=== PATIENT | male | born 1965 | race Caucasian/White ===

== ENCOUNTER 2020-12-13 13:11 | Observation (INO) ==
[2020-12-13] MEDS ORDERED: Ondansetron 4 MG/2 ML VIAL IVP PRN (16:00)
[2020-12-13] MEDS ORDERED: Naloxone 0.4 MG/ML INJ IVP PRN (16:00)
[2020-12-13] MEDS ORDERED: Furosemide 20 MG/2 ML VIAL IVP ONE (17:33)
[2020-12-13] MEDS ORDERED: *HR* Dextrose 50 % in Water (Vial) 50 ML VIAL IVP PRN (17:48)
[2020-12-13] MEDS ORDERED: Dextrose Gel 15 GM/37.5 ML TUBE PO PRN ×2 (17:48)
[2020-12-13] MEDS ORDERED: D5% in Water 1,000 ML IVC PRN (17:48)
[2020-12-13] MEDS: carvediloL 6.25 MG TABLET PO SCH (17:59)
[2020-12-13] MEDS: *HR* Heparin 5,000 UNIT/ML VIAL SQ SCH ×2 (17:59→21:16)
[2020-12-13] MEDS: Aspirin Enteric Coated 81 MG Tablet PO SCH (18:42)
[2020-12-13 18:48] LABS: Bilirubin,Urine Negative (Negative); Blood,Urine Trace (Negative); Clarity,Urine Clear (Clear); Color,Urine Colorless (Yellow); Glucose,Urine (UA) 500 mg/dL (Normal); Ketones,Urine Negative (Negative); Leukocyte Esterase,Urine Negative (Negative); Mucus,Urine Few per lpf (None-Few); Nitrite,Urine Negative (Negative); PH,Urine 6.5 pH Units (5.0-8.0); Protein,Urine >=300 mg/dL (Neg-Trace); RBC,Urine 0-3 per hpf (0-3); Specific Gravity,Urine 1.011 (1.010-1.025); Urobilinogen,Urine Normal (Normal); WBC,Urine 0-3 per hpf (0-3)
[2020-12-13] MEDS: Insulin DETEMIR 100 UNIT/ML X5UNITS SUBQ SCH (21:16)
[2020-12-14 00:49] LABS: Basophils % 0.5 %; Hematocrit 39.7 % (37.5-50.1); Hemoglobin 12.8 g/dL (12.9-16.9); Immature Granulocytes % 0.3 % (0-4); Lymphocytes # 1.2 K/mcL (0.6-4.6); Lymphocytes % 19.6 %; Mean Corpuscular HGB Conc 32.2 g/dL (31.6-35.5); Mean Corpuscular Volume 89.8 fL (83.0-100.0); Mean Platelet Volume 10.2 fL (9.4-12.4); Monocytes # 0.4 K/mcL (0.0-1.3); Monocytes % 6.5 %; Neutrophils # 4.6 K/mcL (1.6-8.9); Platelet Count 226 K/mcL (140-400); Red Blood Count 4.42 M/mcL (4.19-5.50); Red Cell Distribution Width 13.4 % (11.5-14.5); Segmented Neutrophils % 73.1 %; White Blood Count 6.3 K/mcL (4.3-11.1)
[2020-12-14 01:05] LABS: % Iron Saturation 16 % (20-55); Iron 43 mcg/dL (65-175); Transferrin 188 mg/dL (203-362)
[2020-12-14 01:08] LABS: BUN/Creatinine Ratio 11 (6-26); Blood Urea Nitrogen 36 mg/dL (6-20); Calcium 7.7 mg/dL (8.6-10.3); Carbon Dioxide 21 mEq/L (23-29); Chloride 109 mEq/L (98-107); Chol/HDL Ratio 7.7 (0-4.9); Cholesterol 200 mg/dL (< 200); Glucose 427 mg/dL (70-105); HDL Cholesterol 26 mg/dL (40-59); Magnesium 1.9 mg/dL (1.6-2.6); Osmolality,Calculated 311 (280-300); Phosphorous 3.9 mg/dL (2.7-4.5); Potassium 4.5 mEq/L (3.5-5.1); Sodium 137 mEq/L (136-145); Triglycerides 479 mg/dL (< 150); Troponin I 0.03 ng/mL (< 0.04); eGFR For African Americans 23 (> 60); eGFR For Non-African Americans 19 (> 60)
[2020-12-14 01:24] LABS: Ferritin 81 ng/mL (20-250)
[2020-12-14] MEDS: *HR* Heparin 5,000 UNIT/ML VIAL SQ SCH ×3 (04:55→20:37)
[2020-12-14] MEDS: Aspirin Enteric Coated 81 MG Tablet PO SCH (08:23)
[2020-12-14] MEDS: carvediloL 6.25 MG TABLET PO SCH ×2 (08:23→17:15)
[2020-12-14] MEDS: Furosemide 20 MG/2 ML VIAL IVP SCH (08:24)
[2020-12-14] MEDS: Insulin LISPRO 300 UNITS/3 ML VIAL SUBQ SCH ×3 (08:25→16:54)
[2020-12-14] MEDS: Insulin DETEMIR 100 UNIT/ML X5UNITS SUBQ SCH ×2 (08:56→21:54)
[2020-12-14 11:00] LABS: Uric Acid 7.9 mg/dL (2.3-7.6)
[2020-12-14 11:28] LABS: Hepatitis B Surface Antigen Nonreactive (Nonreactive)
[2020-12-14 11:57] LABS: Hepatitis B Core IgM Nonreactive (Nonreactive); Hepatitis C Virus Antibody Nonreactive (Nonreactive)
[2020-12-14 11:59] LABS: Hepatitis A Antibody IgM Nonreactive (Nonreactive)
[2020-12-14] MEDS ORDERED: carvediloL 6.25 MG TABLET PO ONE (12:03)
[2020-12-14] MEDS ORDERED: Iron Sucrose Complex 400 MG in 0.9 % Sodium Chloride 250 ML IVPB ONE (12:31)
[2020-12-14] MEDS ORDERED: Insulin LISPRO 300 UNITS/3 ML VIAL SUBQ SCH (16:30)
[2020-12-15 02:34] LABS: Calcium 8.1 mg/dL (8.6-10.3); Potassium 3.8 mEq/L (3.5-5.1)
[2020-12-15] MEDS: *HR* Heparin 5,000 UNIT/ML VIAL SQ SCH ×2 (04:52→13:45)
[2020-12-15] MEDS ORDERED: Iron Sucrose Complex 400 MG in 0.9 % Sodium Chloride 250 ML IVPB ONE (07:00)
[2020-12-15] MEDS: Insulin LISPRO 300 UNITS/3 ML VIAL SUBQ SCH ×3 (07:57→17:18)
[2020-12-15] MEDS: Aspirin Enteric Coated 81 MG Tablet PO SCH (08:02)
[2020-12-15] MEDS: Furosemide 20 MG/2 ML VIAL IVP SCH (08:02)
[2020-12-15] MEDS: Insulin DETEMIR 100 UNIT/ML X5UNITS SUBQ SCH (08:03)
[2020-12-15] MEDS: carvediloL 6.25 MG TABLET PO SCH (08:03)
[2020-12-15] MEDS ORDERED: carvediloL 6.25 MG TABLET PO ONE (09:45)
[2020-12-15] MEDS ORDERED: carvediloL 25 MG TABLET PO SCH (17:00)
[2020-12-15 18:39] VITALS: BP 151/91
[2020-12-16 15:54] LABS: Total Volume 24 Hour,Urine 3.97 Liters (0.80-1.80)
[2020-12-16 16:15] LABS: Creatinine 24 Hour,Urine 2342 mg/day (800-2000); Creatinine,Urine 59 mg/dL; Microalbumin,Urine > 1350 mg/L; Total Protein 24 Hour,Urine 15920 mg/day (50-80)
== END 2020-12-15 19:25 | disposition home or self-care (01) ==
LOC: 2ANU → SUATTDRO 15:06
PROVIDERS: ADMIT Internal Medicine; ATTEND Internal Medicine

== ENCOUNTER 2021-03-06 03:52 | Inpatient (IN) ==
[2021-03-06] MEDS ORDERED: 0.9 % Sodium Chloride 1,000 ML ONE (06:44)
[2021-03-06] MEDS ORDERED: Ringers Solution, Lactated 1,000 ML ONE (07:20)
[2021-03-06] MEDS ORDERED: D5% in 0.45% NACL w KCl 20 MEQ/1,000 ML MLS IVC PRN (07:23)
[2021-03-06] MEDS ORDERED: D5% in 0.45% NACL 1,000 ML IVC PRN (07:23)
[2021-03-06] MEDS ORDERED: *HR* Dextrose 50 % in Water (Vial) 50 ML VIAL IVP PRN (07:23)
[2021-03-06] MEDS ORDERED: Ringers Solution, Lactated 1,000 ML IVC SCH (07:30)
[2021-03-06 07:50] LABS: Basophils % 0.2 %; Hematocrit 32.8 % (37.5-50.1); Hemoglobin 10.7 g/dL (12.9-16.9); Immature Granulocytes % 4.4 % (0-4); Lymphocytes % 12.2 %; Mean Corpuscular HGB Conc 32.6 g/dL (31.6-35.5); Mean Corpuscular Hemoglobin 28.5 pg (28.0-33.3); Mean Corpuscular Volume 87.2 fL (83.0-100.0); Mean Platelet Volume 10.3 fL (9.4-12.4); Monocytes # 0.5 K/mcL (0.0-1.3); Monocytes % 6.3 %; Neutrophils # 6.3 K/mcL (1.6-8.9); Platelet Count 136 K/mcL (140-400); Red Blood Count 3.76 M/mcL (4.19-5.50); Red Cell Distribution Width 14.1 % (11.5-14.5); Segmented Neutrophils % 76.9 %; White Blood Count 8.3 K/mcL (4.3-11.1)
[2021-03-06 08:18] LABS: VBG HCO3 6 mEq/L (21-27); VBG Ionized Calcium 0.93 mmol/L (1.15-1.35); VBG PCO2 20 mmHg (41-51); VBG PH 7.08 pH Units (7.32-7.42); VBG PO2 213 mmHg (25-50)
[2021-03-06 08:27] LABS: Albumin 2.6 g/dL (3.5-5.7); Albumin/Globulin Ratio 1.2 (1.1-2.2); Bilirubin,Total 0.3 mg/dL (0.3-1.0); Globulin 2.2 g/dL (2.4-3.5); Magnesium 2.4 mg/dL (1.6-2.6); Potassium 4.6 mEq/L (3.5-5.1); Total Protein 4.8 g/dL (6.4-8.9)
[2021-03-06 10:24] LABS: Calcium 6.8 mg/dL (8.6-10.3)
[2021-03-06] MEDS: 0.9 % Sodium Chloride 1,000 ML IVC SCH ×4 (10:51→23:44)
[2021-03-06 12:12] LABS: Sodium, Urine 15.9 mEq/L
[2021-03-06] MEDS: 0.45 % Sodium Chloride w/KCl 20 MEQ/1,000 ML MLS IVC SCH ×6 (12:36→23:43)
[2021-03-06 13:14] LABS: VBG HCO3 9 mEq/L (21-27); VBG PCO2 23 mmHg (41-51); VBG PH 7.19 pH Units (7.32-7.42); VBG PO2 105 mmHg (25-50)
[2021-03-06 13:38] LABS: Magnesium 2.5 mg/dL (1.6-2.6); Potassium 4.8 mEq/L (3.5-5.1)
[2021-03-06] MEDS: *HR* Heparin 5,000 UNIT/ML VIAL SQ SCH ×2 (13:52→23:05)
[2021-03-06 16:35] LABS: VBG HCO3 10 mEq/L (21-27); VBG PCO2 22 mmHg (41-51); VBG PH 7.27 pH Units (7.32-7.42); VBG PO2 213 mmHg (25-50)
[2021-03-06 16:39] LABS: Calcium 7.1 mg/dL (8.6-10.3); Magnesium 2.4 mg/dL (1.6-2.6); Potassium 4.5 mEq/L (3.5-5.1)
[2021-03-06] MEDS: Pantoprazole 40 MG VIAL IVP SCH (16:57)
[2021-03-06 17:33] LABS: Amorphous Sediment,Urine Few per hpf (None-Few); Bacteria,Urine Few per hpf (None-Few); Bilirubin,Urine Negative (Negative); Blood,Urine Moderate (Negative); Budding Yeast,Urine Moderate per hpf (None Seen); Clarity,Urine Turbid (Clear); Color,Urine Light-Yellow (Yellow); Glucose,Urine (UA) >=1000 mg/dL (Normal); Granular Casts,Urine Few per lpf (None Seen); Ketones,Urine 20 mg/dL (Negative); Leukocyte Esterase,Urine Negative (Negative); Mucus,Urine Few per lpf (None-Few); Nitrite,Urine Negative (Negative); Protein,Urine 200 mg/dL (Neg-Trace); Specific Gravity,Urine 1.013 (1.010-1.025); Squamous Epithelial Cell,Urine Few per hpf (None-Few); Urobilinogen,Urine Normal (Normal); WBC,Urine 15-30 per hpf (0-3)
[2021-03-06 23:02] LABS: VBG HCO3 17 mEq/L (21-27); VBG PCO2 44 mmHg (41-51); VBG PH 7.18 pH Units (7.32-7.42); VBG PO2 45 mmHg (25-50)
[2021-03-06 23:10] LABS: Magnesium 2.2 mg/dL (1.6-2.6); Potassium 3.4 mEq/L (3.5-5.1)
[2021-03-06] MEDS ORDERED: 0.45 % Sodium Chloride w/KCl 20 MEQ/1,000 ML MLS IVC PRN (23:46)
[2021-03-06] MEDS ORDERED: 0.9 % Sodium Chloride 1,000 ML IVC PRN (23:47)
[2021-03-07] MEDS: *HR* Heparin 5,000 UNIT/ML VIAL SQ SCH ×3 (05:12→19:57)
[2021-03-07 05:45] LABS: Calcium 7.3 mg/dL (8.6-10.3); Potassium 2.9 mEq/L (3.5-5.1)
[2021-03-07 05:46] LABS: Albumin 2.8 g/dL (3.5-5.7); Phosphorous 2.7 mg/dL (2.7-4.5)
[2021-03-07] MEDS ORDERED: Potassium Phosphate 44 MEQ in 0.9 % Sodium Chloride 250 ML IVPB ONE (06:23)
[2021-03-07] MEDS: Pantoprazole 40 MG VIAL IVP SCH (08:03)
[2021-03-07 11:20] LABS: Hematocrit 26.8 % (37.5-50.1); Hemoglobin 9.7 g/dL (12.9-16.9); Mean Corpuscular HGB Conc 36.2 g/dL (31.6-35.5); Mean Platelet Volume 9.4 fL (9.4-12.4); Platelet Count 105 K/mcL (140-400); Red Blood Count 3.35 M/mcL (4.19-5.50); Red Cell Distribution Width 14.3 % (11.5-14.5); White Blood Count 7.6 K/mcL (4.3-11.1)
[2021-03-07 11:21] LABS: Immature Granulocytes % 1.9 % (0-4); Lymphocytes # 0.3 K/mcL (0.6-4.6); Lymphocytes % 4.5 %; Monocytes # 0.3 K/mcL (0.0-1.3); Monocytes % 3.3 %; Neutrophils # 6.9 K/mcL (1.6-8.9); Segmented Neutrophils % 90.3 %
[2021-03-07 15:03] LABS: VBG Ionized Calcium 0.93 mmol/L (1.15-1.35)
[2021-03-07 15:41] LABS: Calcium 6.6 mg/dL (8.6-10.3); Potassium 3.7 mEq/L (3.5-5.1)
[2021-03-07] MEDS ORDERED: Dextrose Gel 15 GM/37.5 ML TUBE PO PRN ×2 (16:13)
[2021-03-07] MEDS ORDERED: D5% in Water 1,000 ML IVC PRN (16:13)
[2021-03-07] MEDS ORDERED: *HR* Dextrose 50 % in Water (Vial) 50 ML VIAL IVP PRN (16:13)
[2021-03-07] MEDS ORDERED: Insulin DETEMIR 100 UNIT/ML X5UNITS SUBQ SCH (17:00)
[2021-03-07] MEDS: Calcium Gluconate 1gm/50mL 1 GM/50 ML BAG IVPB SCH ×2 (17:03→18:05)
[2021-03-07] MEDS: Insulin LISPRO 300 UNITS/3 ML VIAL SUBQ SCH ×2 (17:04→19:59)
[2021-03-07] MEDS: carvediloL 25 MG TABLET PO SCH (17:05)
[2021-03-07] MEDS: Insulin DETEMIR 100 UNIT/ML X5UNITS SUBQ SCH (19:57)
[2021-03-07 23:31] LABS: Albumin 2.3 g/dL (3.5-5.7); Bilirubin,Total 0.4 mg/dL (0.3-1.0); Calcium 6.9 mg/dL (8.6-10.3); Globulin 2.3 g/dL (2.4-3.5); Magnesium 1.7 mg/dL (1.6-2.6); Phosphorous 5.5 mg/dL (2.7-4.5); Potassium 4.1 mEq/L (3.5-5.1); Total Protein 4.6 g/dL (6.4-8.9)
[2021-03-07 23:33] LABS: VBG Ionized Calcium 0.97 mmol/L (1.15-1.35)
[2021-03-08 04:56] LABS: VBG Ionized Calcium 1.02 mmol/L (1.15-1.35)
[2021-03-08 05:06] LABS: Hematocrit 27.8 % (37.5-50.1); Hemoglobin 9.7 g/dL (12.9-16.9); Immature Granulocytes % 1.9 % (0-4); Lymphocytes # 0.3 K/mcL (0.6-4.6); Lymphocytes % 4.2 %; Mean Corpuscular HGB Conc 34.9 g/dL (31.6-35.5); Mean Corpuscular Hemoglobin 28.6 pg (28.0-33.3); Mean Platelet Volume 9.3 fL (9.4-12.4); Monocytes # 0.1 K/mcL (0.0-1.3); Neutrophils # 5.9 K/mcL (1.6-8.9); Platelet Count 105 K/mcL (140-400); Red Blood Count 3.39 M/mcL (4.19-5.50); Red Cell Distribution Width 14.6 % (11.5-14.5); Segmented Neutrophils % 91.9 %; White Blood Count 6.4 K/mcL (4.3-11.1)
[2021-03-08 05:10] LABS: Albumin 2.6 g/dL (3.5-5.7); Albumin/Globulin Ratio 1.1 (1.1-2.2); Bilirubin,Total 0.6 mg/dL (0.3-1.0); Globulin 2.4 g/dL (2.4-3.5); Magnesium 1.7 mg/dL (1.6-2.6); Phosphorous 4.9 mg/dL (2.7-4.5); Potassium 4.4 mEq/L (3.5-5.1)
[2021-03-08] MEDS: *HR* Heparin 5,000 UNIT/ML VIAL SQ SCH ×3 (05:35→20:47)
[2021-03-08] MEDS ORDERED: Furosemide 40 MG/4 ML VIAL IVP ONE ×2 (05:47→18:00)
[2021-03-08] MEDS: Calcium Gluconate 1gm/50mL 1 GM/50 ML BAG IVPB SCH ×2 (06:46→08:46)
[2021-03-08] MEDS: Insulin DETEMIR 100 UNIT/ML X5UNITS SUBQ SCH ×2 (08:46→17:16)
[2021-03-08] MEDS: Cholecalciferol (D-3) 1,000 UNIT (25MCG) TABLET PO SCH (08:46)
[2021-03-08] MEDS: dexAMETHasone 4 MG TABLET PO SCH (08:47)
[2021-03-08] MEDS: Pantoprazole 40 MG VIAL IVP SCH (08:47)
[2021-03-08] MEDS: carvediloL 25 MG TABLET PO SCH ×2 (08:47→17:16)
[2021-03-08] MEDS: Insulin LISPRO 300 UNITS/3 ML VIAL SUBQ SCH ×4 (08:49→20:55)
[2021-03-08] MEDS ORDERED: *HR* Alteplase (Cathflo) 2 MG VIAL IVP ONE (09:30)
[2021-03-08] MEDS ORDERED: Insulin DETEMIR 100 UNIT/ML X5UNITS SUBQ ONE (12:00)
[2021-03-08] MEDS ORDERED: TOCILIZUMAB 810 MG in 0.9 % Sodium Chloride 95.5 ML IVPB ONE (20:00)
[2021-03-08] MEDS: PARoxetine 20 MG TABLET PO SCH (20:48)
[2021-03-09] MEDS: *HR* Heparin 5,000 UNIT/ML VIAL SQ SCH ×3 (04:59→20:59)
[2021-03-09 05:14] LABS: Hemoglobin 9.5 g/dL (12.9-16.9); Red Cell Distribution Width 14.4 % (11.5-14.5)
[2021-03-09 05:15] LABS: VBG HCO3 21 mEq/L (21-27); VBG Ionized Calcium 1.06 mmol/L (1.15-1.35); VBG PCO2 38 mmHg (41-51); VBG PH 7.35 pH Units (7.32-7.42); VBG PO2 63 mmHg (25-50)
[2021-03-09 05:16] LABS: Basophils % 0.2 %; Hematocrit 27.4 % (37.5-50.1); Immature Granulocytes % 1.4 % (0-4); Immature Platelets 1.9 % (1.1-6.1); Lymphocytes # 0.2 K/mcL (0.6-4.6); Lymphocytes % 4.8 %; Mean Corpuscular HGB Conc 34.7 g/dL (31.6-35.5); Mean Corpuscular Hemoglobin 28.2 pg (28.0-33.3); Mean Corpuscular Volume 81.3 fL (83.0-100.0); Mean Platelet Volume 9.9 fL (9.4-12.4); Monocytes # 0.1 K/mcL (0.0-1.3); Monocytes % 2.6 %; Neutrophils # 4.6 K/mcL (1.6-8.9); Red Blood Count 3.37 M/mcL (4.19-5.50)
[2021-03-09 05:17] LABS: Platelet Count 97 K/mcL (140-400)
[2021-03-09 05:36] LABS: Calcium 7.7 mg/dL (8.6-10.3); Potassium 3.6 mEq/L (3.5-5.1)
[2021-03-09 05:37] LABS: Albumin 2.4 g/dL (3.5-5.7); Albumin/Globulin Ratio 0.8 (1.1-2.2); Bilirubin,Indirect 0.6 mg/dL (0.0-1.0); Bilirubin,Total 0.6 mg/dL (0.3-1.0); Globulin 2.9 g/dL (2.4-3.5); Phosphorous 4.9 mg/dL (2.7-4.5); Total Protein 5.3 g/dL (6.4-8.9)
[2021-03-09] MEDS ORDERED: Furosemide 40 MG/4 ML VIAL IVP ONE (07:08)
[2021-03-09 07:18] LABS: Estimated Average Glucose 243 mg/dL; Hemoglobin A1C 10.1 % (<=5.6)
[2021-03-09] MEDS: Cholecalciferol (D-3) 1,000 UNIT (25MCG) TABLET PO SCH (07:46)
[2021-03-09] MEDS: PARoxetine 20 MG TABLET PO SCH (07:46)
[2021-03-09] MEDS: dexAMETHasone 4 MG TABLET PO SCH (07:46)
[2021-03-09] MEDS: carvediloL 25 MG TABLET PO SCH ×2 (07:46→16:40)
[2021-03-09] MEDS: Pantoprazole 40 MG VIAL IVP SCH (07:46)
[2021-03-09] MEDS: Insulin DETEMIR 100 UNIT/ML X5UNITS SUBQ SCH ×2 (07:47→21:04)
[2021-03-09] MEDS: Insulin LISPRO 300 UNITS/3 ML VIAL SUBQ SCH ×4 (08:29→20:41)
[2021-03-09 21:31] LABS: Magnesium 1.9 mg/dL (1.6-2.6); Potassium 3.8 mEq/L (3.5-5.1)
[2021-03-09 21:34] LABS: VBG Ionized Calcium 1.08 mmol/L (1.15-1.35)
[2021-03-10 04:19] LABS: Hematocrit 30.2 % (37.5-50.1); Hemoglobin 10.4 g/dL (12.9-16.9); Immature Granulocytes % 1.3 % (0-4); Lymphocytes # 0.3 K/mcL (0.6-4.6); Lymphocytes % 3.4 %; Mean Corpuscular HGB Conc 34.4 g/dL (31.6-35.5); Mean Corpuscular Hemoglobin 28.2 pg (28.0-33.3); Mean Corpuscular Volume 81.8 fL (83.0-100.0); Mean Platelet Volume 10.6 fL (9.4-12.4); Monocytes # 0.2 K/mcL (0.0-1.3); Monocytes % 2.6 %; Neutrophils # 7.1 K/mcL (1.6-8.9); Platelet Count 112 K/mcL (140-400); Red Blood Count 3.69 M/mcL (4.19-5.50); Segmented Neutrophils % 92.7 %
[2021-03-10 04:22] LABS: White Blood Count 7.6 K/mcL (4.3-11.1)
[2021-03-10 04:28] LABS: INR 1.1; Prothrombin Time 12.6 Seconds (9.4-12.1)
[2021-03-10 04:36] LABS: VBG HCO3 20 mEq/L (21-27); VBG Ionized Calcium 1.09 mmol/L (1.15-1.35); VBG PCO2 32 mmHg (41-51); VBG PO2 123 mmHg (25-50)
[2021-03-10 04:39] LABS: Magnesium 1.9 mg/dL (1.6-2.6); Phosphorous 4.1 mg/dL (2.7-4.5); Potassium 3.7 mEq/L (3.5-5.1)
[2021-03-10] MEDS: *HR* Heparin 5,000 UNIT/ML VIAL SQ SCH ×3 (05:43→20:50)
[2021-03-10] MEDS: Pantoprazole 40 MG VIAL IVP SCH (08:12)
[2021-03-10] MEDS: Cholecalciferol (D-3) 1,000 UNIT (25MCG) TABLET PO SCH (08:13)
[2021-03-10] MEDS: carvediloL 25 MG TABLET PO SCH ×2 (08:13→17:20)
[2021-03-10] MEDS: PARoxetine 20 MG TABLET PO SCH (08:13)
[2021-03-10] MEDS: Dexamethasone Sodium Phos/PF 10 MG/ML VIAL IVP SCH (08:13)
[2021-03-10] MEDS: Insulin DETEMIR 100 UNIT/ML X5UNITS SUBQ SCH ×2 (08:14→19:43)
[2021-03-10] MEDS: Insulin LISPRO 300 UNITS/3 ML VIAL SUBQ SCH ×4 (08:43→19:41)
[2021-03-11 04:51] LABS: VBG Ionized Calcium 1.09 mmol/L (1.15-1.35)
[2021-03-11 04:58] LABS: Basophils % 0.1 %; Hematocrit 29.3 % (37.5-50.1); Hemoglobin 10.2 g/dL (12.9-16.9); Immature Granulocytes % 1.4 % (0-4); Lymphocytes # 0.4 K/mcL (0.6-4.6); Lymphocytes % 4.2 %; Mean Corpuscular HGB Conc 34.8 g/dL (31.6-35.5); Mean Corpuscular Hemoglobin 28.5 pg (28.0-33.3); Mean Corpuscular Volume 81.8 fL (83.0-100.0); Mean Platelet Volume 10.6 fL (9.4-12.4); Monocytes # 0.4 K/mcL (0.0-1.3); Monocytes % 4.2 %; Neutrophils # 7.8 K/mcL (1.6-8.9); Platelet Count 142 K/mcL (140-400); Red Blood Count 3.58 M/mcL (4.19-5.50); Red Cell Distribution Width 13.4 % (11.5-14.5); Segmented Neutrophils % 90.1 %; White Blood Count 8.7 K/mcL (4.3-11.1)
[2021-03-11 04:58] LABS: VBG HCO3 21 mEq/L (21-27); VBG PCO2 32 mmHg (41-51); VBG PH 7.44 pH Units (7.32-7.42); VBG PO2 138 mmHg (25-50)
[2021-03-11] MEDS: *HR* Heparin 5,000 UNIT/ML VIAL SQ SCH ×3 (05:09→21:24)
[2021-03-11 05:14] LABS: Potassium 3.5 mEq/L (3.5-5.1)
[2021-03-11 05:15] LABS: Calcium 7.9 mg/dL (8.6-10.3); Phosphorous 3.8 mg/dL (2.7-4.5)
[2021-03-11] MEDS: Cholecalciferol (D-3) 1,000 UNIT (25MCG) TABLET PO SCH (07:35)
[2021-03-11] MEDS: Pantoprazole 40 MG VIAL IVP SCH (07:35)
[2021-03-11] MEDS: PARoxetine 20 MG TABLET PO SCH (07:35)
[2021-03-11] MEDS: carvediloL 25 MG TABLET PO SCH ×2 (07:36→16:17)
[2021-03-11] MEDS: Dexamethasone Sodium Phos/PF 10 MG/ML VIAL IVP SCH (07:36)
[2021-03-11] MEDS: Insulin DETEMIR 100 UNIT/ML X5UNITS SUBQ SCH ×2 (08:56→21:24)
[2021-03-11] MEDS: Insulin LISPRO 300 UNITS/3 ML VIAL SUBQ SCH ×4 (08:56→21:14)
[2021-03-11] MEDS ORDERED: Furosemide 40 MG/4 ML VIAL IVP ONE (10:47)
[2021-03-12 03:43] LABS: VBG HCO3 21 mEq/L (21-27); VBG Ionized Calcium 1.07 mmol/L (1.15-1.35); VBG PCO2 32 mmHg (41-51); VBG PH 7.42 pH Units (7.32-7.42); VBG PO2 64 mmHg (25-50)
[2021-03-12 03:44] LABS: Basophils % 0.2 %; Hematocrit 32.3 % (37.5-50.1); Hemoglobin 11.1 g/dL (12.9-16.9); Immature Granulocytes % 3.4 % (0-4); Lymphocytes # 0.6 K/mcL (0.6-4.6); Lymphocytes % 4.3 %; Mean Corpuscular HGB Conc 34.4 g/dL (31.6-35.5); Mean Corpuscular Hemoglobin 28.4 pg (28.0-33.3); Mean Corpuscular Volume 82.6 fL (83.0-100.0); Mean Platelet Volume 10.3 fL (9.4-12.4); Monocytes # 0.8 K/mcL (0.0-1.3); Monocytes % 5.3 %; Neutrophils # 12.3 K/mcL (1.6-8.9); Nucleated Red Blood Cells 0.1 /100 WBC (0); Platelet Count 196 K/mcL (140-400); Red Blood Count 3.91 M/mcL (4.19-5.50); Red Cell Distribution Width 13.3 % (11.5-14.5); Segmented Neutrophils % 86.8 %
[2021-03-12 03:46] LABS: White Blood Count 14.2 K/mcL (4.3-11.1)
[2021-03-12 04:04] LABS: Magnesium 2.1 mg/dL (1.6-2.6); Phosphorous 4.3 mg/dL (2.7-4.5); Potassium 3.6 mEq/L (3.5-5.1)
[2021-03-12] MEDS: *HR* Heparin 5,000 UNIT/ML VIAL SQ SCH ×3 (05:52→20:13)
[2021-03-12] MEDS: Insulin DETEMIR 100 UNIT/ML X5UNITS SUBQ SCH ×2 (09:00→20:13)
[2021-03-12] MEDS: Insulin LISPRO 300 UNITS/3 ML VIAL SUBQ SCH ×4 (09:00→20:14)
[2021-03-12] MEDS: Pantoprazole 40 MG VIAL IVP SCH (09:01)
[2021-03-12] MEDS: PARoxetine 20 MG TABLET PO SCH (09:01)
[2021-03-12] MEDS: Cholecalciferol (D-3) 1,000 UNIT (25MCG) TABLET PO SCH (09:01)
[2021-03-12] MEDS: Dexamethasone Sodium Phos/PF 10 MG/ML VIAL IVP SCH (09:01)
[2021-03-12] MEDS: carvediloL 25 MG TABLET PO SCH ×2 (09:01→15:50)
[2021-03-12] MEDS: amLODIPine 5 MG TABLET PO SCH (20:13)
[2021-03-13] MEDS: *HR* Heparin 5,000 UNIT/ML VIAL SQ SCH ×3 (05:32→21:32)
[2021-03-13] MEDS: Cholecalciferol (D-3) 1,000 UNIT (25MCG) TABLET PO SCH (07:54)
[2021-03-13] MEDS: PARoxetine 20 MG TABLET PO SCH (07:54)
[2021-03-13] MEDS: Dexamethasone Sodium Phos/PF 10 MG/ML VIAL IVP SCH (07:54)
[2021-03-13] MEDS: amLODIPine 5 MG TABLET PO SCH ×2 (07:54→20:12)
[2021-03-13] MEDS: Pantoprazole 40 MG VIAL IVP SCH (07:54)
[2021-03-13] MEDS: carvediloL 25 MG TABLET PO SCH ×2 (07:54→16:01)
[2021-03-13 08:24] LABS: VBG HCO3 22 mEq/L (21-27); VBG Ionized Calcium 1.07 mmol/L (1.15-1.35); VBG PCO2 34 mmHg (41-51); VBG PH 7.42 pH Units (7.32-7.42); VBG PO2 78 mmHg (25-50)
[2021-03-13] MEDS: Insulin LISPRO 300 UNITS/3 ML VIAL SUBQ SCH ×4 (08:26→16:01)
[2021-03-13] MEDS: Insulin DETEMIR 100 UNIT/ML X5UNITS SUBQ SCH ×2 (08:26→20:13)
[2021-03-13 08:27] LABS: Hematocrit 33.1 % (37.5-50.1); Hemoglobin 11.4 g/dL (12.9-16.9); Mean Corpuscular HGB Conc 34.4 g/dL (31.6-35.5); Mean Corpuscular Hemoglobin 28.3 pg (28.0-33.3); Mean Corpuscular Volume 82.1 fL (83.0-100.0); Mean Platelet Volume 10.5 fL (9.4-12.4); Monocytes # 0.7 K/mcL (0.0-1.3); Nucleated Red Blood Cells 0.2 /100 WBC (0); Platelet Count 259 K/mcL (140-400); Red Blood Count 4.03 M/mcL (4.19-5.50); Red Cell Distribution Width 13.3 % (11.5-14.5); White Blood Count 18.3 K/mcL (4.3-11.1)
[2021-03-13 08:52] LABS: Eosinophils # 0.4 K/mcL (0.0-0.6); Lymphocytes # 1.1 K/mcL (0.6-4.6); Neutrophils # 16.1 K/mcL (1.6-8.9); Platelet Estimate Normal (Normal)
[2021-03-13 10:18] LABS: Blood Urea Nitrogen > 130 mg/dL (6-20); C-Reactive Protein 15 mg/L (Less than 10); Carbon Dioxide 23 mEq/L (23-29); Chloride 109 mEq/L (98-107); Glucose 64 mg/dL (70-105); Magnesium 2.4 mg/dL (1.6-2.6); Phosphorous 5.2 mg/dL (2.7-4.5); Potassium 3.6 mEq/L (3.5-5.1); Sodium 144 mEq/L (136-145); eGFR For African Americans 14 (> 60); eGFR For Non-African Americans 12 (> 60)
[2021-03-13] MEDS ORDERED: D5% in Water 1,000 ML IVC PRN (11:10)
[2021-03-13] MEDS ORDERED: Dextrose Gel 15 GM/37.5 ML TUBE PO PRN ×2 (11:10)
[2021-03-13] MEDS ORDERED: *HR* Dextrose 50 % in Water (Vial) 50 ML VIAL IVP PRN (11:10)
[2021-03-13] MEDS ORDERED: Insulin LISPRO 300 UNITS/3 ML VIAL SUBQ SCH (21:00)
[2021-03-14] MEDS: *HR* Heparin 5,000 UNIT/ML VIAL SQ SCH ×3 (05:36→23:17)
[2021-03-14 07:52] LABS: Hematocrit 33.7 % (37.5-50.1); Hemoglobin 11.4 g/dL (12.9-16.9); Mean Corpuscular HGB Conc 33.8 g/dL (31.6-35.5); Mean Corpuscular Hemoglobin 28.1 pg (28.0-33.3); Mean Corpuscular Volume 83.2 fL (83.0-100.0); Mean Platelet Volume 10.3 fL (9.4-12.4); Nucleated Red Blood Cells 0.2 /100 WBC (0); Platelet Count 230 K/mcL (140-400); Red Blood Count 4.05 M/mcL (4.19-5.50); Red Cell Distribution Width 13.2 % (11.5-14.5); White Blood Count 13.3 K/mcL (4.3-11.1)
[2021-03-14 07:56] LABS: VBG Ionized Calcium 1.04 mmol/L (1.15-1.35)
[2021-03-14] MEDS: Cholecalciferol (D-3) 1,000 UNIT (25MCG) TABLET PO SCH (08:11)
[2021-03-14] MEDS: amLODIPine 5 MG TABLET PO SCH ×2 (08:11→20:26)
[2021-03-14] MEDS: carvediloL 25 MG TABLET PO SCH ×2 (08:11→15:31)
[2021-03-14 08:12] LABS: Lymphocytes # 0.3 K/mcL (0.6-4.6); Monocytes # 0.5 K/mcL (0.0-1.3); Neutrophils # 12.5 K/mcL (1.6-8.9)
[2021-03-14] MEDS: PARoxetine 20 MG TABLET PO SCH (08:12)
[2021-03-14 08:13] LABS: Platelet Estimate Normal (Normal)
[2021-03-14 08:15] LABS: Alanine Aminotransferase 25 Units/L (7-52); Albumin 2.8 g/dL (3.5-5.7); Albumin/Globulin Ratio 1.2 (1.1-2.2); Alkaline Phosphatase 74 Units/L (34-104); Aspartate Amino Transferase 26 Units/L (13-39); Bilirubin,Total 0.6 mg/dL (0.3-1.0); Blood Urea Nitrogen > 130 mg/dL (6-20); Calcium 7.9 mg/dL (8.6-10.3); Carbon Dioxide 20 mEq/L (23-29); Chloride 108 mEq/L (98-107); Globulin 2.4 g/dL (2.4-3.5); Glucose 193 mg/dL (70-105); Magnesium 2.4 mg/dL (1.6-2.6); Phosphorous 5.8 mg/dL (2.7-4.5); Sodium 141 mEq/L (136-145); Total Protein 5.2 g/dL (6.4-8.9); eGFR For African Americans 16 (> 60); eGFR For Non-African Americans 13 (> 60)
[2021-03-14] MEDS: Insulin DETEMIR 100 UNIT/ML X5UNITS SUBQ SCH ×2 (08:20→23:09)
[2021-03-14] MEDS: Insulin LISPRO 300 UNITS/3 ML VIAL SUBQ SCH ×4 (08:20→23:10)
[2021-03-14] MEDS ORDERED: Dexamethasone Sodium Phos/PF 10 MG/ML VIAL IVP SCH (09:00)
[2021-03-14] MEDS: Pantoprazole 40 MG VIAL IVP SCH (10:18)
[2021-03-15 05:12] LABS: Basophils % 0.1 %; Hematocrit 32.9 % (37.5-50.1); Hemoglobin 11.1 g/dL (12.9-16.9); Immature Granulocytes % 4.9 % (0-4); Lymphocytes # 0.3 K/mcL (0.6-4.6); Lymphocytes % 1.8 %; Mean Corpuscular HGB Conc 33.7 g/dL (31.6-35.5); Mean Corpuscular Hemoglobin 28.4 pg (28.0-33.3); Mean Corpuscular Volume 84.1 fL (83.0-100.0); Monocytes # 0.3 K/mcL (0.0-1.3); Monocytes % 2.2 %; Neutrophils # 13.4 K/mcL (1.6-8.9); Platelet Count 223 K/mcL (140-400); Red Blood Count 3.91 M/mcL (4.19-5.50); Red Cell Distribution Width 13.5 % (11.5-14.5); White Blood Count 14.8 K/mcL (4.3-11.1)
[2021-03-15 05:20] LABS: Fibrinogen 394 mg/dL (169-393)
[2021-03-15 05:24] LABS: D-Dimer 2227 ng/mLFEU (0-500)
[2021-03-15 05:48] LABS: Alanine Aminotransferase 24 Units/L (7-52); Albumin 2.6 g/dL (3.5-5.7); Alkaline Phosphatase 82 Units/L (34-104); Aspartate Amino Transferase 20 Units/L (13-39); Bilirubin,Total 0.5 mg/dL (0.3-1.0); Blood Urea Nitrogen > 130 mg/dL (6-20); C-Reactive Protein 36 mg/L (Less than 10); Carbon Dioxide 19 mEq/L (23-29); Chloride 108 mEq/L (98-107); Ferritin 1175 ng/mL (20-250); Globulin 2.7 g/dL (2.4-3.5); Glucose 334 mg/dL (70-105); Lactate Dehydrogenase 597 Units/L (140-271); Potassium 4.5 mEq/L (3.5-5.1); Sodium 141 mEq/L (136-145); Total Protein 5.3 g/dL (6.4-8.9); eGFR For African Americans 17 (> 60); eGFR For Non-African Americans 14 (> 60)
[2021-03-15] MEDS: Insulin LISPRO 300 UNITS/3 ML VIAL SUBQ SCH ×4 (05:59→20:03)
[2021-03-15] MEDS: *HR* Heparin 5,000 UNIT/ML VIAL SQ SCH ×3 (05:59→22:46)
[2021-03-15] MEDS: Insulin DETEMIR 100 UNIT/ML X5UNITS SUBQ SCH ×2 (05:59→18:28)
[2021-03-15] MEDS: Pantoprazole 40 MG VIAL IVP SCH (09:10)
[2021-03-15] MEDS: Cholecalciferol (D-3) 1,000 UNIT (25MCG) TABLET PO SCH (09:10)
[2021-03-15] MEDS: Aspirin Enteric Coated 81 MG Tablet PO SCH (09:10)
[2021-03-15] MEDS: amLODIPine 5 MG TABLET PO SCH ×2 (09:10→20:04)
[2021-03-15] MEDS: carvediloL 25 MG TABLET PO SCH ×2 (09:10→17:26)
[2021-03-15] MEDS: PARoxetine 20 MG TABLET PO SCH (09:11)
[2021-03-15] MEDS ORDERED: Sodium Bicarbonate 50 MEQ in 0.45 % Sodium Chloride 1,000 ML IVC SCH (11:45)
[2021-03-16 03:13] LABS: Basophils % 0.1 %; Hematocrit 33.5 % (37.5-50.1); Hemoglobin 11.4 g/dL (12.9-16.9); Immature Granulocytes % 2.5 % (0-4); Lymphocytes # 0.3 K/mcL (0.6-4.6); Lymphocytes % 1.7 %; Mean Corpuscular Hemoglobin 28.7 pg (28.0-33.3); Mean Corpuscular Volume 84.4 fL (83.0-100.0); Mean Platelet Volume 10.9 fL (9.4-12.4); Monocytes # 0.3 K/mcL (0.0-1.3); Monocytes % 1.9 %; Neutrophils # 15.9 K/mcL (1.6-8.9); Platelet Count 232 K/mcL (140-400); Red Blood Count 3.97 M/mcL (4.19-5.50); Red Cell Distribution Width 13.8 % (11.5-14.5); Segmented Neutrophils % 93.8 %
[2021-03-16 03:36] LABS: Alanine Aminotransferase 22 Units/L (7-52); Albumin 2.7 g/dL (3.5-5.7); Albumin/Globulin Ratio 1.1 (1.1-2.2); Alkaline Phosphatase 93 Units/L (34-104); Aspartate Amino Transferase 18 Units/L (13-39); Bilirubin,Total 0.5 mg/dL (0.3-1.0); Blood Urea Nitrogen > 130 mg/dL (6-20); Calcium 8.3 mg/dL (8.6-10.3); Carbon Dioxide 22 mEq/L (23-29); Chloride 111 mEq/L (98-107); Globulin 2.4 g/dL (2.4-3.5); Glucose 114 mg/dL (70-105); Sodium 146 mEq/L (136-145); Total Protein 5.1 g/dL (6.4-8.9); eGFR For African Americans 17 (> 60); eGFR For Non-African Americans 14 (> 60)
[2021-03-16] MEDS: *HR* Heparin 5,000 UNIT/ML VIAL SQ SCH ×2 (05:47→21:39)
[2021-03-16] MEDS: Insulin LISPRO 300 UNITS/3 ML VIAL SUBQ SCH ×4 (08:50→21:58)
[2021-03-16] MEDS: Pantoprazole 40 MG VIAL IVP SCH (08:53)
[2021-03-16] MEDS: carvediloL 25 MG TABLET PO SCH ×2 (08:54→17:47)
[2021-03-16] MEDS: Aspirin Enteric Coated 81 MG Tablet PO SCH (08:55)
[2021-03-16] MEDS: Cholecalciferol (D-3) 1,000 UNIT (25MCG) TABLET PO SCH (08:55)
[2021-03-16] MEDS: amLODIPine 5 MG TABLET PO SCH (08:55)
[2021-03-16] MEDS: PARoxetine 20 MG TABLET PO SCH (08:55)
[2021-03-16] MEDS: Insulin DETEMIR 100 UNIT/ML X5UNITS SUBQ SCH ×2 (08:56→20:50)
[2021-03-16] MEDS ORDERED: 0.9 % Sodium Chloride 250 ML IVC PRN (13:41)
[2021-03-16] MEDS ORDERED: 0.9 % Sodium Chloride 1,000 ML PRIME SCH (13:45)
[2021-03-16] MEDS ORDERED: Albumin 25% 25gram/100mL 25 GM/100 ML IV.SOLN IVC PRN (13:46)
[2021-03-16 14:29] LABS: INR 1.1; Prothrombin Time 12.9 Seconds (9.4-12.1)
[2021-03-16] MEDS ORDERED: amLODIPine 5 MG TABLET PO ONE (14:35)
[2021-03-16] MEDS ORDERED: Insulin DETEMIR 100 UNIT/ML X5UNITS SUBQ SCH (19:00)
[2021-03-17 03:02] LABS: Basophils % 0.1 %; Hematocrit 32.8 % (37.5-50.1); Hemoglobin 11.4 g/dL (12.9-16.9); Immature Granulocytes % 1.2 % (0-4); Lymphocytes # 0.2 K/mcL (0.6-4.6); Lymphocytes % 1.3 %; Mean Corpuscular HGB Conc 34.8 g/dL (31.6-35.5); Mean Corpuscular Hemoglobin 29.5 pg (28.0-33.3); Mean Corpuscular Volume 84.8 fL (83.0-100.0); Monocytes # 0.3 K/mcL (0.0-1.3); Monocytes % 1.6 %; Platelet Count 214 K/mcL (140-400); Red Blood Count 3.87 M/mcL (4.19-5.50); Red Cell Distribution Width 13.9 % (11.5-14.5); Segmented Neutrophils % 95.8 %; White Blood Count 16.7 K/mcL (4.3-11.1)
[2021-03-17 03:12] LABS: Fibrinogen 424 mg/dL (169-393)
[2021-03-17 03:13] LABS: D-Dimer 4007 ng/mLFEU (0-500)
[2021-03-17 03:40] LABS: Alanine Aminotransferase 25 Units/L (7-52); Albumin 2.6 g/dL (3.5-5.7); Alkaline Phosphatase 94 Units/L (34-104); Aspartate Amino Transferase 17 Units/L (13-39); Bilirubin,Total 0.5 mg/dL (0.3-1.0); Blood Urea Nitrogen > 130 mg/dL (6-20); C-Reactive Protein 21 mg/L (Less than 10); Carbon Dioxide 21 mEq/L (23-29); Chloride 109 mEq/L (98-107); Ferritin 1055 ng/mL (20-250); Globulin 2.5 g/dL (2.4-3.5); Glucose 221 mg/dL (70-105); Lactate Dehydrogenase 492 Units/L (140-271); Potassium 4.6 mEq/L (3.5-5.1); Sodium 142 mEq/L (136-145); Total Protein 5.1 g/dL (6.4-8.9); eGFR For African Americans 19 (> 60); eGFR For Non-African Americans 16 (> 60)
[2021-03-17] MEDS: *HR* Heparin 5,000 UNIT/ML VIAL SQ SCH (05:19)
[2021-03-17] MEDS: Insulin LISPRO 300 UNITS/3 ML VIAL SUBQ SCH ×4 (09:28→21:24)
[2021-03-17] MEDS: Aspirin Enteric Coated 81 MG Tablet PO SCH (09:50)
[2021-03-17] MEDS: amLODIPine 5 MG TABLET PO SCH (09:50)
[2021-03-17] MEDS: Cholecalciferol (D-3) 1,000 UNIT (25MCG) TABLET PO SCH (09:50)
[2021-03-17] MEDS: PARoxetine 20 MG TABLET PO SCH (09:51)
[2021-03-17] MEDS: carvediloL 25 MG TABLET PO SCH ×2 (09:51→18:09)
[2021-03-17] MEDS: Insulin DETEMIR 100 UNIT/ML X5UNITS SUBQ SCH ×2 (09:51→21:24)
[2021-03-17] MEDS ORDERED: *HR* Heparin 5,000 UNIT/ML VIAL IVP PRN ×2 (10:18)
[2021-03-17] MEDS ORDERED: Perflutren Lipid Microsphere 1.3 ML in 0.9 % Sodium Chloride 8.7 ML IVP PRN (12:16)
[2021-03-17] MEDS: Heparin 25,000UNIT/250ML 1/2NS 25,000 UNIT/250 ML IV.SOLN IVC SCH (12:50)
[2021-03-17 13:10] LABS: Heparin anti-factor XA UFH 0.06 IU/mL (0.30-0.70); INR 1.2; Prothrombin Time 13.4 Seconds (9.4-12.1)
[2021-03-17] MEDS ORDERED: Heparin 1,000 UNITS/500 mL 500 ML ONE (13:43)
[2021-03-17] MEDS ORDERED: *HR* Heparin 5,000 UNIT/ML VIAL ONE (14:10)
[2021-03-17] MEDS ORDERED: *HR* Heparin 10,000 UNIT/10 ML VIAL IV PRN (16:07)
[2021-03-17] MEDS ORDERED: 0.9 % Sodium Chloride 250 ML IVC PRN (16:07)
[2021-03-17] MEDS ORDERED: Albumin 25% 25gram/100mL 25 GM/100 ML IV.SOLN IVPB ONE (16:13)
[2021-03-17 18:21] LABS: Hepatitis B Surface Antigen Nonreactive (Nonreactive)
[2021-03-17 18:50] LABS: Hepatitis C Virus Antibody Nonreactive (Nonreactive)
[2021-03-17 20:52] LABS: Hepatitis B Surface Antibody < 3.10 mIU/mL
[2021-03-18] MEDS ORDERED: *HR* Heparin 10,000 UNIT/10 ML VIAL IV PRN (07:49)
[2021-03-18] MEDS ORDERED: 0.9 % Sodium Chloride 250 ML IVC PRN (07:49)
[2021-03-18] MEDS: Aspirin Enteric Coated 81 MG Tablet PO SCH (08:17)
[2021-03-18] MEDS: PARoxetine 20 MG TABLET PO SCH (08:18)
[2021-03-18] MEDS: Cholecalciferol (D-3) 1,000 UNIT (25MCG) TABLET PO SCH (08:18)
[2021-03-18] MEDS: Heparin 25,000UNIT/250ML 1/2NS 25,000 UNIT/250 ML IV.SOLN IVC SCH (08:20)
[2021-03-18] MEDS: Insulin LISPRO 300 UNITS/3 ML VIAL SUBQ SCH ×4 (08:22→20:34)
[2021-03-18 10:01] LABS: Basophils % 0.1 %; Hemoglobin 10.7 g/dL (12.9-16.9); Immature Granulocytes % 0.9 % (0-4); Lymphocytes # 0.2 K/mcL (0.6-4.6); Lymphocytes % 1.1 %; Mean Corpuscular HGB Conc 33.4 g/dL (31.6-35.5); Mean Corpuscular Hemoglobin 28.8 pg (28.0-33.3); Mean Platelet Volume 11.4 fL (9.4-12.4); Monocytes # 0.4 K/mcL (0.0-1.3); Monocytes % 2.4 %; Neutrophils # 15.7 K/mcL (1.6-8.9); Platelet Count 183 K/mcL (140-400); Red Blood Count 3.72 M/mcL (4.19-5.50); Red Cell Distribution Width 13.6 % (11.5-14.5); Segmented Neutrophils % 95.5 %; White Blood Count 16.4 K/mcL (4.3-11.1)
[2021-03-18 10:23] LABS: Albumin 2.7 g/dL (3.5-5.7); Albumin/Globulin Ratio 1.2 (1.1-2.2); Bilirubin,Total 0.5 mg/dL (0.3-1.0); Globulin 2.3 g/dL (2.4-3.5); Potassium 4.7 mEq/L (3.5-5.1)
[2021-03-18 11:22] LABS: Platelet Estimate Normal (Normal)
[2021-03-18] MEDS: Insulin DETEMIR 100 UNIT/ML X5UNITS SUBQ SCH ×2 (12:21→20:35)
[2021-03-18] MEDS: carvediloL 25 MG TABLET PO SCH ×2 (16:03→17:24)
[2021-03-18] MEDS: amLODIPine 5 MG TABLET PO SCH (17:24)
[2021-03-19 04:40] LABS: Basophils % 0.1 %; Hematocrit 33.1 % (37.5-50.1); Hemoglobin 11.4 g/dL (12.9-16.9); Immature Granulocytes % 0.6 % (0-4); Lymphocytes # 0.2 K/mcL (0.6-4.6); Mean Corpuscular HGB Conc 34.4 g/dL (31.6-35.5); Mean Corpuscular Volume 84.2 fL (83.0-100.0); Mean Platelet Volume 11.1 fL (9.4-12.4); Monocytes # 0.5 K/mcL (0.0-1.3); Monocytes % 2.2 %; Neutrophils # 22.9 K/mcL (1.6-8.9); Platelet Count 171 K/mcL (140-400); Red Blood Count 3.93 M/mcL (4.19-5.50); Red Cell Distribution Width 13.5 % (11.5-14.5); Segmented Neutrophils % 96.1 %; White Blood Count 23.8 K/mcL (4.3-11.1)
[2021-03-19 04:48] LABS: Fibrinogen 388 mg/dL (169-393)
[2021-03-19 04:50] LABS: D-Dimer 4449 ng/mLFEU (0-500)
[2021-03-19 04:58] LABS: C-Reactive Protein 16 mg/L (Less than 10); Lactate Dehydrogenase 481 Units/L (140-271)
[2021-03-19 04:59] LABS: Albumin 2.8 g/dL (3.5-5.7); Albumin/Globulin Ratio 1.2 (1.1-2.2); Bilirubin,Total 0.6 mg/dL (0.3-1.0); Calcium 8.4 mg/dL (8.6-10.3); Globulin 2.3 g/dL (2.4-3.5); Total Protein 5.1 g/dL (6.4-8.9)
[2021-03-19 05:19] LABS: Ferritin > 1500 ng/mL (20-250)
[2021-03-19] MEDS ORDERED: 0.9 % Sodium Chloride 250 ML IVC PRN (08:42)
[2021-03-19] MEDS ORDERED: *HR* Heparin 10,000 UNIT/10 ML VIAL IV PRN (08:42)
[2021-03-19] MEDS ORDERED: 0.9 % Sodium Chloride 1,000 ML PRIME SCH (08:45)
[2021-03-19] MEDS ORDERED: Isovue-370 500 ML BOTTLE IVP ONE (09:26)
[2021-03-19] MEDS: Insulin LISPRO 300 UNITS/3 ML VIAL SUBQ SCH ×4 (10:25→20:58)
[2021-03-19] MEDS: Aspirin Enteric Coated 81 MG Tablet PO SCH (10:31)
[2021-03-19] MEDS: Cholecalciferol (D-3) 1,000 UNIT (25MCG) TABLET PO SCH (10:31)
[2021-03-19] MEDS: carvediloL 25 MG TABLET PO SCH ×3 (10:31→17:35)
[2021-03-19] MEDS: amLODIPine 5 MG TABLET PO SCH ×2 (10:32→11:58)
[2021-03-19] MEDS: Insulin DETEMIR 100 UNIT/ML X5UNITS SUBQ SCH ×2 (10:39→20:58)
[2021-03-19] MEDS: PARoxetine 20 MG TABLET PO SCH (10:44)
[2021-03-19] MEDS: Heparin 25,000UNIT/250ML 1/2NS 25,000 UNIT/250 ML IV.SOLN IVC SCH ×2 (11:42→14:47)
[2021-03-19] MEDS ORDERED: Dexmedetomidine HCl 400 MCG/100 ML MLS IVC SCH (13:00)
[2021-03-19] MEDS: *HR* Heparin 5,000 UNIT/ML VIAL SQ SCH (20:58)
[2021-03-20] MEDS: *HR* Heparin 5,000 UNIT/ML VIAL SQ SCH ×3 (06:12→21:11)
[2021-03-20 06:33] LABS: Basophils % 0.1 %; Hemoglobin 11.7 g/dL (12.9-16.9); Immature Granulocytes % 0.9 % (0-4); Lymphocytes # 0.2 K/mcL (0.6-4.6); Lymphocytes % 1.3 %; Mean Corpuscular HGB Conc 34.4 g/dL (31.6-35.5); Mean Corpuscular Hemoglobin 29.5 pg (28.0-33.3); Mean Corpuscular Volume 85.6 fL (83.0-100.0); Mean Platelet Volume 11.7 fL (9.4-12.4); Monocytes # 0.5 K/mcL (0.0-1.3); Monocytes % 3.1 %; Neutrophils # 16.1 K/mcL (1.6-8.9); Platelet Count 146 K/mcL (140-400); Red Blood Count 3.97 M/mcL (4.19-5.50); Red Cell Distribution Width 13.5 % (11.5-14.5); Segmented Neutrophils % 94.6 %
[2021-03-20 06:46] LABS: Albumin 2.9 g/dL (3.5-5.7); Albumin/Globulin Ratio 1.3 (1.1-2.2); Bilirubin,Total 0.6 mg/dL (0.3-1.0); Calcium 8.3 mg/dL (8.6-10.3); Globulin 2.3 g/dL (2.4-3.5); Potassium 5.3 mEq/L (3.5-5.1); Total Protein 5.2 g/dL (6.4-8.9)
[2021-03-20] MEDS: Insulin DETEMIR 100 UNIT/ML X5UNITS SUBQ SCH ×2 (09:27→21:12)
[2021-03-20] MEDS: Insulin LISPRO 300 UNITS/3 ML VIAL SUBQ SCH ×2 (09:28→17:32)
[2021-03-20] MEDS: Cholecalciferol (D-3) 1,000 UNIT (25MCG) TABLET PO SCH (09:30)
[2021-03-20] MEDS: amLODIPine 5 MG TABLET PO SCH (09:31)
[2021-03-20] MEDS: PARoxetine 20 MG TABLET PO SCH (09:31)
[2021-03-20] MEDS: carvediloL 25 MG TABLET PO SCH ×2 (09:31→17:32)
[2021-03-20] MEDS: Aspirin Enteric Coated 81 MG Tablet PO SCH (09:31)
[2021-03-20] MEDS: cefTRIAXone 1,000 MG in Water for inj. (sterile) 10 ML IVP SCH (13:00)
[2021-03-21] MEDS: *HR* Heparin 5,000 UNIT/ML VIAL SQ SCH ×3 (06:14→20:57)
[2021-03-21 06:44] LABS: Basophils % 0.1 %; Hematocrit 31.8 % (37.5-50.1); Immature Granulocytes % 0.6 % (0-4); Lymphocytes # 0.3 K/mcL (0.6-4.6); Lymphocytes % 1.6 %; Mean Corpuscular HGB Conc 34.6 g/dL (31.6-35.5); Mean Corpuscular Hemoglobin 28.9 pg (28.0-33.3); Mean Corpuscular Volume 83.7 fL (83.0-100.0); Mean Platelet Volume 11.7 fL (9.4-12.4); Monocytes # 0.5 K/mcL (0.0-1.3); Neutrophils # 15.5 K/mcL (1.6-8.9); Platelet Count 142 K/mcL (140-400); Red Cell Distribution Width 13.6 % (11.5-14.5); Segmented Neutrophils % 94.7 %; White Blood Count 16.4 K/mcL (4.3-11.1)
[2021-03-21 07:01] LABS: Alanine Aminotransferase 30 Units/L (7-52); Albumin 2.9 g/dL (3.5-5.7); Albumin/Globulin Ratio 1.3 (1.1-2.2); Alkaline Phosphatase 85 Units/L (34-104); Aspartate Amino Transferase 10 Units/L (13-39); Bilirubin,Total 0.5 mg/dL (0.3-1.0); Blood Urea Nitrogen > 130 mg/dL (6-20); Calcium 8.4 mg/dL (8.6-10.3); Carbon Dioxide 23 mEq/L (23-29); Chloride 97 mEq/L (98-107); Globulin 2.3 g/dL (2.4-3.5); Glucose 189 mg/dL (70-105); Potassium 5.3 mEq/L (3.5-5.1); Sodium 135 mEq/L (136-145); Total Protein 5.2 g/dL (6.4-8.9); eGFR For African Americans 20 (> 60); eGFR For Non-African Americans 16 (> 60)
[2021-03-21] MEDS: Aspirin Enteric Coated 81 MG Tablet PO SCH (08:22)
[2021-03-21] MEDS: carvediloL 25 MG TABLET PO SCH ×2 (08:22→17:05)
[2021-03-21] MEDS: amLODIPine 5 MG TABLET PO SCH (08:22)
[2021-03-21] MEDS: PARoxetine 20 MG TABLET PO SCH (08:23)
[2021-03-21] MEDS: Cholecalciferol (D-3) 1,000 UNIT (25MCG) TABLET PO SCH (08:23)
[2021-03-21] MEDS: cefTRIAXone 1,000 MG in Water for inj. (sterile) 10 ML IVP SCH (08:23)
[2021-03-21] MEDS: Insulin DETEMIR 100 UNIT/ML X5UNITS SUBQ SCH ×2 (08:26→20:58)
[2021-03-21] MEDS: Insulin LISPRO 300 UNITS/3 ML VIAL SUBQ SCH ×3 (08:27→17:03)
[2021-03-21] MEDS ORDERED: 0.9 % Sodium Chloride 250 ML IVC PRN (12:20)
[2021-03-21] MEDS ORDERED: *HR* Heparin 10,000 UNIT/10 ML VIAL IV PRN (12:20)
[2021-03-21] MEDS ORDERED: 0.9 % Sodium Chloride 1,000 ML PRIME SCH (12:30)
[2021-03-21] MEDS ORDERED: *HR* LORazepam 0.5 MG TABLET PO PRN (16:52)
[2021-03-22] MEDS: *HR* Heparin 5,000 UNIT/ML VIAL SQ SCH (05:50)
[2021-03-22] MEDS ORDERED: Dexamethasone Sodium Phos/PF 10 MG/ML VIAL IVP SCH (10:00)
[2021-03-22] MEDS: Insulin LISPRO 300 UNITS/3 ML VIAL SUBQ SCH ×3 (10:10→11:48)
[2021-03-22] MEDS: Cholecalciferol (D-3) 1,000 UNIT (25MCG) TABLET PO SCH (10:26)
[2021-03-22] MEDS: carvediloL 25 MG TABLET PO SCH (10:26)
[2021-03-22] MEDS: amLODIPine 5 MG TABLET PO SCH (10:27)
[2021-03-22] MEDS: PARoxetine 20 MG TABLET PO SCH (10:27)
[2021-03-22] MEDS: cefTRIAXone 1,000 MG in Water for inj. (sterile) 10 ML IVP SCH (10:28)
[2021-03-22] MEDS: Aspirin Enteric Coated 81 MG Tablet PO SCH (10:29)
[2021-03-22] MEDS: Insulin DETEMIR 100 UNIT/ML X5UNITS SUBQ SCH (10:29)
[2021-03-22 11:47] LABS: Basophils % 0.1 %; Hematocrit 30.8 % (37.5-50.1); Hemoglobin 10.4 g/dL (12.9-16.9); Immature Granulocytes % 0.7 % (0-4); Lymphocytes # 0.3 K/mcL (0.6-4.6); Lymphocytes % 2.1 %; Mean Corpuscular HGB Conc 33.8 g/dL (31.6-35.5); Mean Corpuscular Hemoglobin 28.5 pg (28.0-33.3); Mean Corpuscular Volume 84.4 fL (83.0-100.0); Mean Platelet Volume 12.1 fL (9.4-12.4); Monocytes # 0.7 K/mcL (0.0-1.3); Monocytes % 4.8 %; Neutrophils # 13.4 K/mcL (1.6-8.9); Platelet Count 142 K/mcL (140-400); Red Blood Count 3.65 M/mcL (4.19-5.50); Red Cell Distribution Width 13.7 % (11.5-14.5); Segmented Neutrophils % 92.3 %; White Blood Count 14.5 K/mcL (4.3-11.1)
[2021-03-22 11:58] LABS: D-Dimer 3111 ng/mLFEU (0-500)
[2021-03-22] MEDS ORDERED: Insulin Human Regular 10 UNIT in 0.9 % Sodium Chloride 10 ML IV ONE (12:18)
[2021-03-22 12:56] LABS: Alanine Aminotransferase 26 Units/L (7-52); Albumin 2.7 g/dL (3.5-5.7); Albumin/Globulin Ratio 1.1 (1.1-2.2); Alkaline Phosphatase 75 Units/L (34-104); Aspartate Amino Transferase 9 Units/L (13-39); Bilirubin,Total 0.4 mg/dL (0.3-1.0); Blood Urea Nitrogen > 130 mg/dL (6-20); C-Reactive Protein 8 mg/L (Less than 10); Calcium 7.6 mg/dL (8.6-10.3); Carbon Dioxide 18 mEq/L (23-29); Chloride 94 mEq/L (98-107); Ferritin 1482 ng/mL (20-250); Globulin 2.4 g/dL (2.4-3.5); Glucose 402 mg/dL (70-105); Lactate Dehydrogenase 345 Units/L (140-271); Potassium 6.2 mEq/L (3.5-5.1); Sodium 131 mEq/L (136-145); Total Protein 5.1 g/dL (6.4-8.9); eGFR For African Americans 17 (> 60); eGFR For Non-African Americans 14 (> 60)
[2021-03-22 13:18] LABS: Fibrinogen 286 mg/dL (169-393)
[2021-03-22] MEDS ORDERED: Morphine Sulfate 2 MG/ML SYRINGE IVP ONE (14:16)
[2021-03-22] MEDS ORDERED: Morphine Sulfate 2 MG/ML SYRINGE IVP PRN ×2 (14:47→15:09)
[2021-03-22] MEDS ORDERED: Atropine 1% Opth Drops 100 DROP/5 ML BOTTLE SL PRN (14:48)
[2021-03-22] MEDS ORDERED: Haloperidol Lactate 5 MG/ML VIAL IVP PRN (14:49)
[2021-03-22] MEDS: *HR* LORazepam 2 MG/ML VIAL IVP PRN (15:11)
[2021-03-22] MEDS: Morphine Sulfate 2 MG/ML SYRINGE IVP PRN (20:01)
[2021-03-23] MEDS: *HR* LORazepam 2 MG/ML VIAL IVP PRN ×3 (01:03→13:44)
[2021-03-23] MEDS: Morphine Sulfate 2 MG/ML SYRINGE IVP PRN ×3 (01:05→09:04)
[2021-03-23 07:38] VITALS: BP 153/81; PULSE 102; TEMP 97.7; O2SAT 88
[2021-03-23] MEDS: PARoxetine 20 MG TABLET PO SCH (07:45)
[2021-03-23] MEDS ORDERED: 0.9 % Sodium Chloride 1,000 ML ONE (07:55)
[2021-03-23] MEDS: *HR* FentaNYL (PF) 100 MCG/2 ML VIAL IVP PRN ×3 (10:50→12:56)
== END 2021-03-23 15:32 | disposition expired | DRG 177 ==
LOC: ICNU → SUATTDRO 13:29 → 3NENU 03-14 06:51 → 2NNU 03-14 19:55 → 2NENU 03-15 19:03
PROVIDERS: ADMIT Student in an Organized Health Care Education/Training Program; ATTEND Family Medicine